=== PATIENT | male | born 1985 | race Caucasian/White ===

== ENCOUNTER 2017-01-19 16:33 | Emergency (ER) | payer OTHER | END 2017-01-19 18:48 | disposition home or self-care (01) | LOC: FER 16:33 | DX: B02.9 Zoster without complications (principal) | CPT/HCPCS: 99282 ==

== ENCOUNTER 2017-03-05 08:18 | Emergency (ER) | payer OTHER | END 2017-03-05 09:17 | disposition home or self-care (01) | LOC: FER 08:18 | DX: J20.9 Acute bronchitis, unspecified (principal); R09.1 Pleurisy; H92.01 Otalgia, right ear; Z85.118 Personal history of other malignant neoplasm of bronchus and lung; Z79.51 Long term (current) use of inhaled steroids; Z79.899 Other long term (current) drug therapy; Z90.2 Acquired absence of lung [part of] | CPT/HCPCS: 71010; 99283 ==

== ENCOUNTER 2021-08-11 10:28 | Emergency (ER) | payer OTHER ==
[~2021-08-11 10:28] MED LIST: PREDNISONE 20MG20 MG PO; PROMETHAZINE-D118 ML PO; VENTOLIN HFA IN18 GM INH; ZYRTEC10 M3 PO
[2021-08-11 11:18] LABS: BASOPHIL 0.5 % (0-2); EOSINOPHIL 4.4 % (0-5); HGB 16.2 g/dl (13.2-18.0); LYMPHOCYTE 23.3 % (15-48); MCH 28.3 pg (25.0-31.0); MCHC 33.8 g/dL (32.0-36.0); MCV 83.9 fL (78.0-100.0); MPV 9.3 fL (6.0-9.5); NEUTROPHIL 63.6 % (41-80); NRBC 0; PLT 206 K/uL (150-400); RBC 5.72 M/uL (4.70-6.00); RDW 12.6 % (11.5-14.0); WBC 6.6 K/uL (4.0-10.5)
[2021-08-11 12:17] LABS: CORONAVIRUS 2019 SARS-COV-2 NEGATIVE (NEGATIVE); INFLUENZA A NAA NEGATIVE (NEGATIVE)
[2021-08-11 12:50] LABS: ALBUMIN 4.1 g/dL (3.4-5.0); BILIRUBIN - TOTAL 0.4 mg/dL (0.2-1.0); BUN/CREAT RATIO (CALC) 26.1 RATIO; CREATININE 0.88 mg/dL (0.67-1.17); GLOBULIN (CALCULATION) 3.8 g/dL; POTASSIUM 4.5 mmol/L (3.5-5.1); TOTAL PROTEIN 7.9 g/dL (6.4-8.2)
== END 2021-08-11 13:46 | disposition home or self-care (01) ==
LOC: FER 10:28
PROVIDERS: Internal Medicine
DX: J06.9 Acute upper respiratory infection, unspecified (principal); J44.9 Chronic obstructive pulmonary disease, unspecified; Z88.0 Allergy status to penicillin; Z20.822 Contact with and (suspected) exposure to COVID-19
CPT/HCPCS: 36415; 71045; 80053; 82550; 84145; 85025; U0002

== ENCOUNTER 2021-10-06 06:36 | Emergency (ER) | payer OTHER ==
[2021-10-06 08:37] LABS: INFLUENZA A NAA NEGATIVE (NEGATIVE)
[2021-10-06 08:40] LABS: CORONAVIRUS 2019 SARS-COV-2 POSITIVE (NEGATIVE)
== END 2021-10-06 10:51 | disposition home or self-care (01) ==
LOC: FER 06:36
PROVIDERS: Emergency Medicine
DX: U07.1 COVID-19 (principal); Z23 Encounter for immunization; Z88.0 Allergy status to penicillin
CPT/HCPCS: 71046; M0243; Q0244; U0002